=== PATIENT | male | born 1950 | race Two or more races ===

== ENCOUNTER 2020-11-05 11:41 | Observation (INO) | payer MEDICARE ==
[~2020-11-05] VITALS: Ht 172.7 cm; Wt 74.2 kg
[2020-11-05] MEDS ORDERED: SODIUM CHLORIDE FLUSH 10ML SYR IVF ONE (12:00)
--- NOTE | 2020-11-05 12:01 | NUR ---
PATIENT WALKED BACK FROM TRIAGE WITH CHIEF C/O CHEST PAIN XFEW DAYS. PATIENT REFERRED BY PCP THIS MORNING TO ED, STATES HIS HEAD "FEELS LIKE A BALLOON." REPORTS SOB WELL. CONNECTED TO MONITOR, VSS, CALL LIGHT WITHIN REACH.
--- NOTE | 2020-11-05 12:11 | NUR ---
20 GAUGE IV STARTED RIGHT AC, BLOOD COLLECTED AND SENT TO LAB.
[2020-11-05 12:26] LABS: BASOPHILS % (AUTO) 1 % (0-1); EOSINOPHILS % (AUTO) 3 % (1-7); LYMPHOCYTES % (AUTO) 35 % (22-44); MEAN CORPUSCULAR HEMOGLOBIN 31.1 pg (27.5-34.5); MEAN CORPUSCULAR HGB CONC 34.8 g/dL (33.2-36.2); MEAN PLATELET VOLUME 7.5 fL (7.4-10.4); MONOCYTES % (AUTO) 6 % (2-9); NEUTROPHILS % (AUTO) 55 % (42-75); PLATELET COUNT 249 x10^3/uL (130-400)
[2020-11-05 12:38] LABS: ALANINE AMINOTRANSFERASE 34 U/L (12-78); ALBUMIN 3.5 g/dL (3.4-5.0); ANION GAP 5 mmol/L (5-15); CALCIUM 8.2 mg/dL (8.5-10.1); CHLORIDE 107 mmol/L (98-107)
[2020-11-05 12:41] LABS: ALKALINE PHOSPHATASE 66 U/L (45-117); BILIRUBIN,TOTAL 0.8 mg/dL (0.2-1.0); TOTAL PROTEIN 7.1 g/dL (6.4-8.2); TROPONIN I < 0.015 ng/mL (0.000-0.045)
--- NOTE | 2020-11-05 13:08 | NUR ---
PATIENT RESTING IN GURNEY, STATES HE "FEELS BETTER," DENIES CP, CONNECTED TO MONITOR, VSS, CALL LIGHT WITHIN REACH. WAITING FOR ADMIT ORDER.
[2020-11-05 13:19] LABS: INTERNATIONAL NORMALIZED RATIO 1.03 (0.93-1.1)
--- NOTE | 2020-11-05 13:43 | NUR ---
TASK RN: PT RESTING ON GURNEY. NADN. MICHAEL.
[2020-11-05] MEDS ORDERED: APIXABAN 5 MG TABLET PO ONE (14:04)
[2020-11-05] MEDS ORDERED: APIXABAN 5 MG TABLET ONE (14:34)
--- NOTE | 2020-11-05 14:38 | NUR ---
PATIENT RESTING IN GURNEY, DAUGHTER AT BEDSIDE. PATIENT DENIES CHEST PAIN AT THIS TIME, CONNECTED TO MONITOR, VSS, CALL LIGHT WITHIN REACH. WAITING FOR BED ASSIGNMENT UPSTAIRS.
--- NOTE | 2020-11-05 14:49 | NUR ---
DR. GALLEGOS [facility] AT BEDSIDE FOR ADMISSION EVALUATION.
[2020-11-05] MEDS ORDERED: ENALAPRILAT 1.25 MG/ML, 2ML IVPush PRN (15:30)
[2020-11-05] MEDS ORDERED: ACETAMINOPHEN 325 MG TABLET PO PRN (15:30)
--- NOTE | 2020-11-05 15:42 | NUR ---
DINNER TRAY ORDERED.
--- NOTE | 2020-11-05 15:54 | NUR ---
PATIENT RESTING IN GURNEY, DENIES CHEST PAIN AT THIS TIME, CONNECTED TO MONITOR, VSS, DAUGHTER AT BEDSIDE, CALL LIGHT WITHIN REACH. WAITING FOR BED ASSIGNMENT UPSTAIRS.
--- NOTE | 2020-11-05 16:38 | NUR ---
HOSPITAL BED REQUESTED.
--- NOTE | 2020-11-05 16:48 | NUR ---
DINNER TRAY PROVIDED.
--- NOTE | 2020-11-05 17:17 | NUR ---
PATIENT PLACED ON HOSPITAL BED, NADN, DENIES CHEST PAIN AT THIS TIME. CONNECTED TO MONITOR, VSS, CALL LIGHT WITHIN REACH. WAITING FOR BED ASSIGNMENT UPSTAIRS.
--- NOTE | 2020-11-05 18:14 | NUR ---
REPORT TO MARLEN BLANCO FOR TRANSFER OF PATIENT CARE.
--- NOTE | 2020-11-05 18:45 | NUR ---
PATIENT TRANSFERRED IN STABLE CONDITION TO [facility] BED WITH [employer] DRIVER. ALL PATIENT BELONGINGS TAKEN TO FLOOR WITH PATIENT.
[2020-11-05 20:20] LABS: TROPONIN I < 0.015 ng/mL (0.000-0.045)
[2020-11-05] MEDS ORDERED: ATORVASTATIN 40 MG TABLET PO SCH (21:00)
[2020-11-05 21:45] VITALS: BP 103/74
[2020-11-06 02:50] VITALS: BP 119/82
[2020-11-06] MEDS ORDERED: ATEN25TA PO (03:08)
[2020-11-06] MEDS ORDERED: ATOR40TA78 PO (03:08)
[2020-11-06] MEDS ORDERED: OMEP-110 PO (03:08)
[2020-11-06] MEDS ORDERED: DABI150C PO ×3 (03:08→15:31)
[2020-11-06 03:37] LABS: TROPONIN I < 0.015 ng/mL (0.000-0.045)
[2020-11-06] MEDS ORDERED: OMEPRAZOLE 20 MG CAPSULE.DR PO SCH (06:00)
[2020-11-06 08:02] VITALS: BP 125/79
[2020-11-06] MEDS ORDERED: APIXABAN 5 MG TABLET PO SCH (09:00)
[2020-11-06 12:44] VITALS: BP 141/82
[2020-11-06] MEDS ORDERED: APIX5TAB PO ×3 (17:10→17:15)
== END 2020-11-06 16:21 | disposition home or self-care (01) ==
LOC: ED 14:10 → INTOOBSV 14:11 → EDIP 14:11 → ED 14:43 → 5SO 18:15
PROVIDERS: ADMIT Hospitalist; ATTEND Internal Medicine
DX: R07.89 Other chest pain (principal); I48.91 Unspecified atrial fibrillation; R42 Dizziness and giddiness; D68.69 Other thrombophilia; I10 Essential (primary) hypertension; E78.5 Hyperlipidemia, unspecified; K29.70 Gastritis, unspecified, without bleeding; K21.9 Gastro-esophageal reflux disease without esophagitis; G90.8 Other disorders of autonomic nervous system; Z72.89 Other problems related to lifestyle; Z87.891 Personal history of nicotine dependence; Z79.01 Long term (current) use of anticoagulants; Z91.19 Patient's noncompliance with other medical treatment and regimen; Z79.899 Other long term (current) drug therapy
CPT/HCPCS: 36415; 71045; 80053; 83605; 83880; 84443; 84484; 85025; 85610; 85730; 93005; 93306; 99285; G0378